=== PATIENT | female | born 1980 | race Two or more races ===

== ENCOUNTER 2018-08-24 04:30 | Emergency (ER) | payer OTHER ==
[~2018-08-24] VITALS: Ht 167.6 cm; Wt 110.7 kg
== END 2018-08-24 20:11 | disposition home or self-care (01) ==
LOC: ER 04:30
DX: N83.292 Other ovarian cyst, left side (principal)

== ENCOUNTER 2018-08-28 09:01 | Outpatient (CLI) | payer OTHER | END 2018-08-28 17:00 | disposition home or self-care (01) | LOC: RAD 09:01 | DX: M54.2 Cervicalgia (principal) ==